=== PATIENT | male | born 1975 | race Caucasian/White ===

== ENCOUNTER 2017-04-27 10:00 | Outpatient (CLI) | payer BC ==
--- NOTE | 2017-05-04 10:08 | Physician Query-Final Dx ---
BARTOLO SCHULTZ 05/04/17 1008: Clinic Account Progress/Dx Physician Query: Please give a diagnosis for the patients home sleep study thank you Date of Service Apr 27, 2017 at 10:00 KATHERYN BUTCHER MD 05/09/17 0638: Clinic Account Progress/Dx DIAGNOSIS: Diagnosis obstructive sleep apnea, snoring BARTOLO SCHULTZ May 04, 2017 10:08 KATHERYN BUTCHER MD May 09, 2017 06:38
== END 2017-04-27 10:35 | disposition home or self-care (01) ==
LOC: SLEEP 10:00
PROVIDERS: ATTEND Otolaryngology Otolaryngology/Facial Plastic Surgery
DX: G47.33 Obstructive sleep apnea (adult) (pediatric) (principal); R06.83 Snoring